=== PATIENT | male | born 1960 | race Caucasian/White ===

== ENCOUNTER 2024-12-06 22:04 | Emergency (ER) | payer BC ==
[~2024-12-06] VITALS: Ht 180.3 cm; Wt 95.3 kg
[~2024-12-06 22:04] MED LIST: MULT-331 PO; UBID1CAP2 PO
[2024-12-06 22:58] LABS: BASOPHILS # (AUTO) 0.1 K/UL (0.0-0.2); BASOPHILS % (AUTO) 0.9 % (0.0-2.0); DIFFERENTIAL COMMENT 1; EOSINOPHILS # (AUTO) 0.1 K/uL (0.0-0.7); EOSINOPHILS % (AUTO) 1.7 % (0.0-7.0); HEMATOCRIT 38.3 % (36.7-47.1); HEMOGLOBIN 13.1 g/dL (12.5-16.3); LYMPHOCYTES # (AUTO) 2.2 K/uL (0.8-4.8); LYMPHOCYTES % (AUTO) 29.9 % (20.5-51.5); MEAN CORPUSCULAR HEMOGLOBIN 33.2 uug (23.8-33.4); MEAN CORPUSCULAR HGB CONC 34 g/dL (32.5-36.3); MEAN CORPUSCULAR VOLUME 96.7 fL (73.0-96.2); MONOCYTES # (AUTO) 0.5 K/uL (0.1-1.30); NEUTROPHILS # (AUTO) 4.5 K/uL (1.8-8.9); NEUTROPHILS % (AUTO) 60.5 % (38.5-71.5); PLATELET COUNT (AUTO) 249 K/uL (152-348); RED BLOOD CELL COUNT(AUTO) 3.96 MIL/uL (4.06-5.63); RED CELL DISTRIBUTION WIDTH 13.9 % (12.1-16.2); WHITE BLOOD COUNT (AUTO) 7.5 K/uL (3.6-10.2)
[2024-12-06 23:09] LABS: CREATININE 0.8 mg/dL (0.6-1.3); POTASSIUM 3.3 mmol/L (3.5-5.1)
[2024-12-06 23:22] LABS: ALBUMIN 3.6 g/dL (3.4-5.0); BILIRUBIN,TOTAL 0.5 mg/dL (0.2-1.0); TOTAL PROTEIN, SERUM 6.9 g/dL (6.4-8.2)
[2024-12-06 23:43] LABS: *BILIRUBIN,URIN NEGATIVE (NEGATIVE); *BLOOD, URINE NEGATIVE (NEGATIVE); *CLARITY,URINE CLEAR (CLEAR); *COLOR,URINE LIGHT YELLOW (YELLOW); *KETONES,URINE NEGATIVE (NEGATIVE); *PROTEIN,URINE NEGATIVE (NEGATIVE); *UROBILINOGEN,URINE 0.2 E.U./dl (NORMAL); LEUKOCYTE ESTERASE ,URINE NEGATIVE (NEGATIVE); NITRITE, URINE NEGATIVE (NEGATIVE); PH,URINE 5.5 (5.0-8.0); UGLUCOSE NEGATIVE (NEGATIVE)
[2024-12-06 23:58] LABS: *AMPHETAMINE, URINE NEGATIVE (NEGATIVE); *BARBITURATE, URINE NEGATIVE (NEGATIVE); *BENZODIAZEPINE, URINE NEGATIVE (NEGATIVE); *CANNABINOID, URINE POSITIVE (NEGATIVE); *COCCAINE, URINE NEGATIVE (NEGATIVE); *OPIATE, URINE NEGATIVE (NEGATIVE); *PHENCYCLIDINE SCREEN,URINE NEGATIVE (NEGATIVE); FENTANYL, URINE NEGATIVE (NEGATIVE)
[2024-12-07] MEDS ORDERED: LIDOCAINE HCL 1% 20 ML VIAL ONE (01:36)
[2024-12-07] MEDS ORDERED: TDAP DIPH,PERTUSS,TET VAC/PF 0.5 ML DISP.SYRIN IM ONE (01:39)
[2024-12-07] MEDS ORDERED: ONDANSETRON HCL 4 MG TABLET ONE (01:51)
[2024-12-07] MEDS: ONDANSETRON HCL 4 MG TABLET PO ONE (01:55)
[2024-12-07] MEDS: LIDOCAINE HCL 1% 20 ML VIAL IJ ONE (01:55)
[2024-12-07] MEDS: TDAP DIPH,PERTUSS,TET VAC/PF 0.5 ML DISP.SYRIN IM ONE (01:55)
[2024-12-07] MEDS: IV NS 1000 ML 1,000 ML IV ONE (01:56)
[2024-12-07 03:43] VITALS: BP 122/68; TEMP 98.1; O2SAT 97
== END 2024-12-07 01:50 | disposition home or self-care (01) ==
LOC: ER 22:18
DX: S09.90XA Unspecified injury of head, initial encounter (principal); R07.9 Chest pain, unspecified; Z88.6 Allergy status to analgesic agent; Z88.7 Allergy status to serum and vaccine; Z60.2 Problems related to living alone; W01.0XXA Fall on same level from slipping, tripping and stumbling without subsequent striking against object, initial encounter; Y93.01 Activity, walking, marching and hiking; Y92.89 Other specified places as the place of occurrence of the external cause; Y99.8 Other external cause status
CPT/HCPCS: 36415; 70450; 71045; 84484; 85025; 90715; A4606; A4663; G0480; J3490; Q0162

== ENCOUNTER 2024-12-15 17:05 | Emergency (ER) | payer BC ==
[~2024-12-15] VITALS: Ht 180.3 cm; Wt 95.3 kg
[2024-12-15 17:09] VITALS: O2SAT 99
== END 2024-12-15 18:01 | disposition home or self-care (01) ==
LOC: ER 17:05
DX: S01.01XD Laceration without foreign body of scalp, subsequent encounter (principal); Z88.6 Allergy status to analgesic agent; Z88.7 Allergy status to serum and vaccine; Z48.02 Encounter for removal of sutures; Z87.19 Personal history of other diseases of the digestive system; Z60.2 Problems related to living alone; X58.XXXD Exposure to other specified factors, subsequent encounter
CPT/HCPCS: A4606; A4663

== ENCOUNTER 2025-02-14 13:45 | Emergency (ER) | payer BC ==
[~2025-02-14] VITALS: Ht 182.9 cm; Wt 86.2 kg
[2025-02-14] MEDS ORDERED: PANTOPRAZOLE SODIUM 40 MG VIAL ONE (14:11)
[2025-02-14] MEDS ORDERED: ONDANSETRON 4 MG/2 ML VIAL ONE (14:11)
[2025-02-14] MEDS: IV NORMAL SALINE 1000 ML BAG IV ONE (14:15)
[2025-02-14] MEDS: PANTOPRAZOLE SODIUM 40 MG VIAL IV ONE (14:17)
[2025-02-14 14:19] LABS: BASOPHILS # (AUTO) 0.1 K/UL (0.0-0.2); BASOPHILS % (AUTO) 0.8 % (0.0-2.0); EOSINOPHILS % (AUTO) 0.1 % (0.0-7.0); HEMATOCRIT 44.3 % (36.7-47.1); HEMOGLOBIN 15.1 g/dL (12.5-16.3); LYMPHOCYTES # (AUTO) 1.3 K/uL (0.8-4.8); LYMPHOCYTES % (AUTO) 17.9 % (20.5-51.5); MEAN CORPUSCULAR HEMOGLOBIN 32.8 uug (23.8-33.4); MEAN CORPUSCULAR HGB CONC 34 g/dL (32.5-36.3); MEAN CORPUSCULAR VOLUME 96.2 fL (73.0-96.2); MONOCYTES # (AUTO) 0.8 K/uL (0.1-1.30); MONOCYTES % (AUTO) 10.5 % (0.0-11.0); NEUTROPHILS # (AUTO) 5.3 K/uL (1.8-8.9); NEUTROPHILS % (AUTO) 70.7 % (38.5-71.5); PLATELET COUNT (AUTO) 320 K/uL (152-348); RED CELL DISTRIBUTION WIDTH 14.3 % (12.1-16.2); WHITE BLOOD COUNT (AUTO) 7.5 K/uL (3.6-10.2)
[2025-02-14] MEDS: ONDANSETRON 4 MG/2 ML VIAL IV ONE (14:22)
[2025-02-14 14:28] LABS: CALCIUM 9.5 mg/dL (8.5-10.1); CREATININE 1.1 mg/dL (0.6-1.3); POTASSIUM 3.6 mmol/L (3.5-5.1)
[2025-02-14 14:34] LABS: ALBUMIN 3.9 g/dL (3.4-5.0); BILIRUBIN,DIRECT 0.2 mg/dL (0.0-0.2); BILIRUBIN,TOTAL 0.9 mg/dL (0.2-1.0)
[2025-02-14] MEDS: METOCLOPRAMIDE HCL 10 MG/2 ML VIAL IV ONE (14:56)
[2025-02-14] MEDS ORDERED: FAMO40TA7 PO (15:13)
[2025-02-14 15:38] VITALS: BP 122/67; O2SAT 99
== END 2025-02-14 15:42 | disposition home or self-care (01) ==
LOC: ER 13:45
DX: K20.90 Esophagitis, unspecified without bleeding (principal); R10.9 Unspecified abdominal pain; R11.2 Nausea with vomiting, unspecified; R53.83 Other fatigue; Z88.6 Allergy status to analgesic agent; Z88.7 Allergy status to serum and vaccine; Z91.148 Patient's other noncompliance with medication regimen for other reason; Z87.19 Personal history of other diseases of the digestive system
CPT/HCPCS: 99285; 96374; 71045; 96375; 80076; 80048; 83690; 85025; 36415; 93005; J2405; J2470; J7040; A4606; A4663